=== PATIENT | female | born 1980 | race Caucasian/White ===

== ENCOUNTER 2016-09-30 19:57 | Emergency (ER) | payer BC ==
[2016-09-30] MEDS ORDERED: SODIUM CHLORIDE 0.9% 1,000 ML IV ONE ×2 (20:50→21:01)
[2016-09-30] MEDS ORDERED: DICYCLOMINE 10 MG CAPSULE PO STA (21:02)
[2016-09-30] MEDS ORDERED: ONDANSETRON 4 MG/2 ML VIAL IVP STA (21:02)
[2016-09-30] MEDS ORDERED: DICYCLOMINE 10 MG CAPSULE PO ONE (21:11)
[2016-09-30] MEDS ORDERED: FAMOTIDINE 20 MG/50 ML 50 ML IV ONE ×2 (21:11)
[2016-09-30] MEDS ORDERED: ONDANSETRON 4 MG/2 ML VIAL ONE (21:11)
[2016-09-30] MEDS ORDERED: AZITHROMYCIN 250 MG TABLET PO STA (22:59)
[2016-09-30] MEDS ORDERED: AZITHROMYCIN 250 MG TABLET PO ONE (23:04)
[2016-09-30] MEDS ORDERED: PROMETHAZINE 25 MG TABLET ONE (23:21)
[2016-09-30] MEDS ORDERED: PROMETHAZINE 25 MG TABLET PO STA (23:25)
== END 2016-09-30 23:26 | disposition home or self-care (01) ==
DX: A04.5 Campylobacter enteritis (principal); E86.0 Dehydration; R03.0 Elevated blood-pressure reading, without diagnosis of hypertension
CPT/HCPCS: 36415; 80053; 83630; 83690; 84703; 85025; 87045; 87046; 87493; 96374; 96375; 99283; 99284; A9270; Q0169